=== PATIENT | male | born 1980 | race American Indian/Alaskan Native ===

== ENCOUNTER 2017-04-11 01:54 | Emergency (ER) | payer OTHER ==
[2017-04-11 01:59] VITALS: BP 121/91
[2017-04-11] MEDS ORDERED: LIDOCAINE VISCOUS 2% ONE (05:10)
[2017-04-11] MEDS ORDERED: LIDOCAINE VISCOUS 2% PO ONE (05:11)
--- NOTE | 2017-04-11 05:17 | Emergency Department Report ---
HPI - General Chief Complaint: Sore Throat Time Seen by Provider: 04/11/17 05:17 - HPI HPI: Patient reports sore throat 4 days. Reports that he has white stuff in the back of his throat. Denies any drooling. Denies any difficulty swallowing but reports pain with swallowing. Pain to throat is 9 out of 10 and sore worse with swallowing. Took [id number] pain medication with minimal help. Reports fever and chills. He states that he took some pain medicine prior to coming to the emergency room. Denies any nausea or vomiting. Denies any difficulty breathing. Denies any stridor or wheezing. Denies any cough. Denies any abdominal pain. Denies any nausea or vomiting. Patient said he had strep in the past and it presented the same way and he thinks he's been exposed to strep. ED Past Medical Hx - Past Medical History Previous Medical History?: No - Surgical History Past Surgical History?: No - Family History Family history: no significant - Social History Smoking Status: Never Smoker Substance Use Type: None - Medications Home Medications: Home Medications Medication Instructions Recorded Confirmed Last Taken Type Ibuprofen [Motrin] 600 mg PO Q8H PRN #15 tablet 04/11/17 Unknown Rx ED Review of Systems ROS: Stated complaint: SORE THROAT Other details as noted in HPI Comment: All other systems reviewed and negative Constitutional: chills, fever ENT: throat pain. denies: ear pain, dental pain, hearing loss, congestion Respiratory: no symptoms reported Cardiovascular: denies: chest pain, palpitations, dyspnea on exertion, edema, syncope, paroxysmal nocturnal dyspnea Gastrointestinal: denies: abdominal pain, nausea, vomiting, diarrhea Musculoskeletal: denies: back pain, joint swelling, arthralgia, myalgia Skin: denies: rash Neurological: denies: headache, weakness, numbness, paresthesias, confusion, abnormal gait, vertigo Hematological/Lymphatic: swollen glands Physical Exam - Physical Exam Vital Signs: Vital Signs 04/11/17 04/11/17 01:54 01:59 Temperature 98.9 F 98.9 F Pulse Rate 89 93 H Respiratory 18 18 Rate Blood Pressure 121/91 121/91 O2 Sat by Pulse 99 99 Oximetry General: This is a 36-year-old male well-nourished well-developed in no acute distress. Physical Exam: Head: Normocephalic, atraumatic, no abrasion, no bruising and no contusion. Eyes: Biateral pupils equal and reactive to light, bilateral EOM intact.. Bilateral conjunctival and sclera without injection, normal accommodation. Mouth: Moist, positive pharyngeal exudate with erythema. No peritonsillar abscesses. Uvula is midline and oral airways patent. Tongue is normal. Noted malodorous breath. Ears: Bilateral TMs pearly ayala ,Bilateral EAC without any redness swelling or drainage. No mastoid bone tenderness Nose: Lateral nasal mucosa normal ,Maxillary and frontal sinuses non-tender to palpate. Neck: Supple, positive anterior Cervical adenopathy, full range of motion and no C-spine tenderness. No swelling or tracheal deviation normal reflexes Cardiovascular: S1, S2. Regular rate and rhythm. No murmur. Capillary refill is less then 3 seconds. Lungs: Clear to auscultate bilaterally. No rhonchi, wheezes or rales. No chest wall tenderness. No chest contusion. No bruising to chest. Abdomen: Non-tender to palpate in all quadrants, no guarding or rebound tenderness, positive bowel sounds in all quadrants. No CVA tenderness. No hernia, bruit or mass. No rigidity or distention. Extremities: No clubbing, cyanosis or edema. +2 pulses. No neurovascular compromise Skin: Clean, dry and intact. No rash or lesions. Psych: Normal mood and behavior ED Course Vital Signs 04/11/17 04/11/17 01:54 01:59 Temperature 98.9 F 98.9 F Pulse Rate 89 93 H Respiratory 18 18 Rate Blood Pressure 121/91 121/91 O2 Sat by Pulse 99 99 Oximetry - Reevaluation(s) Reevaluation #1: 04/11/17 06:51 Patient given viscous lidocaine in emergency room to help with sore throat. He was also given Motrin 800 mg and prednisone 60 mg by mouth which he said helped and he feels better. Patient was treated based on [facility] criteria for strep. He has exudative oropharynx, erythema, fever and chills and enlarged lymph nodes. No respiratory symptoms. ED Medical Decision Making - Medical Decision Making ED course: Patient air complaining of sore throat, fever, chills. Physical findings were exudative pharyngitis. Based on [facility] criteria patient was treated for strep throat. He has enlarged anterior cervical lymph nodes, exudate oropharynx with erythema and mild swelling, fever and chills with absence of respiratory symptoms. I discussed patient treatment plan and diagnosis and he voiced understanding. Patient was given Bicillin LA 1.2 million units in emergency room without any adverse reaction. He was also given viscous lidocaine 15 mL for sore throat, Motrin 800 mg by mouth and 6 mg by mouth. He said he felt much better upon reevaluation. Patient able to tolerate oral liquids prior to discharge. Patient discharged home in stable condition to follow up at [facility] in 2-3 days. Given prescription for Motrin. Critical care attestation.: If time is entered above; I have spent that time in minutes in the direct care of this critically ill patient, excluding procedure time. ED Disposition Clinical Impression: Exudative pharyngitis, Chills, Anterior cervical adenopathy Disposition: - TO HOME OR SELFCARE Is pt being admited?: No Does the pt Need Aspirin: No Condition: Stable Instructions: Strep Throat (ED), Fever in Adults (ED) Additional Instructions: You were treated with penicillin in the emergency room which is a long acting and penicillin called Bicillin LA. This medication will stay new body for up to 10 days to treat strep throat. He will not need another antibiotic for treatment. Take Motrin as prescribed for fever and/or chills. Follow up at [facility] in 2-3 days. Prescriptions: Ibuprofen [Motrin] 600 mg PO Q8H PRN #15 tablet PRN Reason: fever and or pain Referrals: PRIMARY CARE, [Primary Care Provider] - 2-3 Days [facility] [Outside] - 2-3 Days Forms: Work/School Release Form(ED)
[2017-04-11] MEDS ORDERED: DELTASONE PO ONE (05:18)
[2017-04-11] MEDS ORDERED: MOTRIN PO ONE (05:18)
[2017-04-11] MEDS ORDERED: BICILLIN L-A IM ONE ×2 (06:47→06:48)
== END 2017-04-11 07:01 | disposition home or self-care (01) ==
LOC: ED 01:54
DX: J02.9 Acute pharyngitis, unspecified (principal); R59.0 Localized enlarged lymph nodes
CPT/HCPCS: 96372; 99282; J0561; J7512